=== PATIENT | male | born 1945 | race Caucasian/White ===

== ENCOUNTER 2017-07-01 16:14 | Inpatient (IN) | payer BC, MEDICARE ==
[2017-07-01] VITALS (13 sets, daily range): BP systolic 76–107; BP diastolic 38–73
[~2017-07-01] VITALS: Ht 172.7 cm; Wt 101.2 kg
[2017-07-01] MEDS ORDERED: SODIUM CHLORIDE 0.9% 1000ML 2,000 ML IV ONE (16:27)
[2017-07-01] MEDS ORDERED: ACETAMINOPHEN ELIXIR 325 MG/10.15ML UDCUP ONE (16:27)
[2017-07-01] MEDS ORDERED: ZOSYN 3.375GM+NS 50ML 50 ML IV ONE (16:27)
[2017-07-01 16:34] LABS: BASOPHILS % (AUTO) 0.1 % (0.0-5.0); HEMATOCRIT 38.5 % (42-54); LYMPHOCYTES % (AUTO) 2.4 % (21.0-51.0); MEAN CORPUSCULAR HEMOGLOBIN 30.1 pg (27.0-33.0); MEAN CORPUSCULAR HGB CONC 33.4 g/dL (32.0-36.0); MEAN CORPUSCULAR VOLUME 90.3 fL (79-99); MONOCYTES % (AUTO) 1.8 % (3.0-13.0); NEUTROPHILS % (AUTO) 95.7 % (40.0-77.0); PLATELET COUNT (AUTO) 150 K/uL (130-400); RED BLOOD CELL COUNT(AUTO) 4.27 MIL/uL (4.50-6.20); RED CELL DISTRIBUTION WIDTH 15.6 % (11.0-15.5); WHITE BLOOD COUNT (AUTO) 13.1 K/uL (4.8-10.8)
[2017-07-01 16:37] LABS: APPEARANCE,URINE CLOUDY (CLEAR); BILIRUBIN,URINE MODERATE (NEGATIVE); COLOR,URINE YELLOW (YELLOW); GLUCOSE, URINE (UA) 100 mg/dL (NEGATIVE); KETONES,URINE 15 mg/dL (NEGATIVE); LEUKOCYTE ESTERASE ,URINE LARGE (NEGATIVE); NITRATE,URINE NEGATIVE (NEGATIVE); OCCULT BLOOD,URINE MODERATE (NEGATIVE); PH,URINE 5.5 (5.0-8.0); PROTEIN,URINE 30 (NEGATIVE)
[2017-07-01 17:00] LABS: WBC,URINE 26-50 /HPF (0-1)
[2017-07-01 17:01] LABS: BACTERIA,URINE Few /HPF (None Seen); SQUAMOUS EPITHELIAL CELL,UR Few /HPF (0-2)
[2017-07-01 17:19] LABS: INR 1.34 (0.85-1.15); PARTIAL THROMBOPLASTIN TIME 30.4 SEC (26.3-35.5)
[2017-07-01 17:35] LABS: ALBUMIN 1.8 g/dL (3.5-5.0); BILIRUBIN,TOTAL 2.9 mg/dL (0.2-1.0); CREATINE KINASE MB 1.9 ng/mL (0.5-3.6); CREATININE 2.6 mg/dL (0.5-1.5); POTASSIUM 2.6 mmol/L (3.5-5.1); TOTAL PROTEIN, SERUM 5.5 g/dL (6.0-8.3); TROPONIN I 0.54 ng/mL (0.00-0.06)
[2017-07-01] MEDS ORDERED: POTASSIUM CHLORIDE 20MEQ/100ML 100 ML IV ONE (18:04)
[2017-07-01] MEDS ORDERED: LIDOCAINE HCL-MPF 1% 2ML VIAL ONE (18:04)
[2017-07-01] MEDS ORDERED: SODIUM CHLORIDE 0.9% 1000ML 1,000 ML IV ONE ×2 (18:06→18:59)
[2017-07-01] MEDS ORDERED: CLONIDINE HCL 0.1 MG TABLET PO PRN (18:30)
[2017-07-01] MEDS ORDERED: MAGNESIUM OXIDE 400 MG TABLET PO ONE (18:30)
[2017-07-01] MEDS ORDERED: ENOXAPARIN SODIUM 40 MG/0.4 ML SYRINGE SQ SCH (18:30)
[2017-07-01] MEDS ORDERED: SODIUM CHLORIDE 0.9% 10 ML VIAL IVP SCH (18:30)
[2017-07-01] MEDS ORDERED: LACTULOSE 20 GM/30 ML UDCUP PO PRN (18:30)
[2017-07-01] MEDS ORDERED: ACETAMINOPHEN 325 MG TAB PO PRN ×2 (18:30)
[2017-07-01] MEDS ORDERED: ONDANSETRON HCL MDV 20ML 2 MG/ML VIAL IVP PRN (18:45)
[2017-07-01] MEDS ORDERED: LEVOFLOXACIN 500 MG/D5W 100 ML 100 ML IV SCH (19:00)
[2017-07-01] MEDS: SODIUM CHLORIDE 0.9% 1000ML 1,000 ML IV SCH ×4 (20:09→22:57)
[2017-07-01] MEDS ORDERED: POTASSIUM CHLORIDE 20 MEQ/100 ML BAG IV ONE (20:30)
[2017-07-01] MEDS ORDERED: NOREPINEPHRINE 4MG/NS 250ML 250 ML IV SCH (21:00)
[2017-07-01] MEDS ORDERED: HYDR-4060 PO (21:35)
[2017-07-01] MEDS ORDERED: SOLI10TA PO (21:35)
[2017-07-01] MEDS ORDERED: ASPI-555 PO (21:35)
[2017-07-01] MEDS ORDERED: PRED20TA3 PO (21:35)
[2017-07-01] MEDS ORDERED: AMLO5TAB2 PO (21:35)
[2017-07-01] MEDS ORDERED: CARV25TA PO (21:35)
[2017-07-01] MEDS ORDERED: CYCL10TA7 PO (21:35)
[2017-07-01] MEDS ORDERED: SIMV40TA59 PO (21:35)
[2017-07-01] MEDS ORDERED: LISI-613 PO (21:35)
[2017-07-01] MEDS ORDERED: GLYB1TAB3 PO (21:35)
[2017-07-01] MEDS ORDERED: TERA2CAP4 PO (21:35)
[2017-07-01] MEDS ORDERED: FURO40TA5 PO (21:35)
[2017-07-01] MEDS ORDERED: KRIL1CAP15 PO (21:35)
[2017-07-01] MEDS ORDERED: POTA10TA PO (21:35)
[2017-07-01] MEDS ORDERED: PHENYLEPHRINE HCL 10 MG/ML 1ML VIAL IV ONE (21:42)
[2017-07-01] MEDS ORDERED: SODIUM CHLORIDE 0.9% 500 ML IV ONE (21:43)
[2017-07-01] MEDS: PHENYLEPHRINE HCL 10 MG in SODIUM CHLORIDE 0.9% 250 ML IV PRN (21:59)
[2017-07-01] MEDS ORDERED: ZOSYN 3.375GM+NS 50ML 50 ML IV SCH (22:00)
[2017-07-01] MEDS ORDERED: DOXYCYCLINE 100MG+NS 250ML 250 ML IV ONE (22:24)
[2017-07-01] MEDS ORDERED: GLUCAGON 1MG KIT 1 MG ML IM PRN (22:30)
[2017-07-01] MEDS ORDERED: DEXTROSE 50%-WATER 50 ML DISP.SYRIN IV PRN (22:30)
[2017-07-01] MEDS: DOXYCYCLINE 100MG+NS 250ML 250 ML IV SCH (22:31)
[2017-07-01] MEDS ORDERED: INSULIN HUMULIN R 100 UNIT/ML 3ML ONE (23:03)
[2017-07-01] MEDS: MAGNESIUM 2GM PREMIX 50ML 50 ML IV PRN (23:34)
[2017-07-02] VITALS (42 sets, daily range): BP systolic 82–128; BP diastolic 46–91
[2017-07-02] MEDS: ZOSYN 3.375GM+NS 50ML 50 ML IV SCH ×2 (00:27→08:17)
[2017-07-02 00:39] LABS: CREATINE KINASE MB 1.8 ng/mL (0.5-3.6); TROPONIN I 0.46 ng/mL (0.00-0.06)
[2017-07-02] MEDS: PHENYLEPHRINE HCL 10 MG in SODIUM CHLORIDE 0.9% 250 ML IV PRN ×6 (00:39→17:19)
[2017-07-02] MEDS ORDERED: PHENYLEPHRINE HCL 10 MG/ML 1ML VIAL IV ONE ×2 (00:55→02:06)
[2017-07-02] MEDS ORDERED: SODIUM CHLORIDE 0.9% 500 ML IV ONE ×2 (00:56→02:07)
[2017-07-02] MEDS ORDERED: SODIUM CHLORIDE 0.9% 1000ML 1,000 ML IV ONE (01:45)
[2017-07-02] MEDS ORDERED: NOREPINEPHRINE 4MG/NS 250ML 250 ML IV PRN (01:45)
[2017-07-02] MEDS ORDERED: VASOPRESSIN 125 UNITS in SODIUM CHLORIDE 0.9% 250 ML IV PRN (01:45)
[2017-07-02] MEDS: SODIUM CHLORIDE 0.9% 1000ML 1,000 ML IV SCH (03:07)
[2017-07-02 04:09] LABS: ABG BASE EXCESS 1.8 mmol/L (-2.0-3.0); ABG HCO3 25.1 mmol/L (21.0-28.0); ABG OXYGEN SATURATION 96.2 % (95.0-99.0); ABG PCO2 36 mmHg (35-48)
[2017-07-02 05:54] LABS: BASOPHILS % (AUTO) 0.2 % (0.0-5.0); EOSINOPHILS % (AUTO) 0.1 % (0.0-8.0); HEMATOCRIT 30.5 % (42-54); LYMPHOCYTES % (AUTO) 6.6 % (21.0-51.0); MEAN CORPUSCULAR HEMOGLOBIN 30.9 pg (27.0-33.0); MEAN CORPUSCULAR VOLUME 88.3 fL (79-99); MONOCYTES % (AUTO) 5.1 % (3.0-13.0); PLATELET COUNT (AUTO) 125 K/uL (130-400); RED BLOOD CELL COUNT(AUTO) 3.45 MIL/uL (4.50-6.20); RED CELL DISTRIBUTION WIDTH 15.5 % (11.0-15.5); WHITE BLOOD COUNT (AUTO) 16.1 K/uL (4.8-10.8)
[2017-07-02 06:05] LABS: B-TYPE NATRIURETIC PEPTIDE 1080 pg/mL (0-100)
[2017-07-02 06:06] LABS: HEMOGLOBIN A1C 10.3 % (4.0-6.0)
[2017-07-02 06:36] LABS: ALANINE AMINOTRANSFERASE 12 U/L (12-78); ALBUMIN 1.7 g/dL (3.5-5.0); ASPARTATE AMINOTRANSFERASE 17 U/L (10-37); BILIRUBIN,TOTAL 2.2 mg/dL (0.2-1.0); CARBON DIOXIDE 26 mmol/L (21-32); CHLORIDE 101 mmol/L (101-111); CHOLESTEROL 59 mg/dL (<200); CREATINE KINASE MB 1.9 ng/mL (0.5-3.6); CREATINE KINASE, TOTAL 98 U/L (21-232); CREATININE 1.8 mg/dL (0.5-1.5); GLOMERULAR FILTR. RATE CALC 40 mL/min (>60); GLUCOSE,RANDOM 177 mg/dL (70-105); LDL DIRECT 29 mg/dL (0-99); MYOGLOBIN 108 ng/mL (10-92); SODIUM SERUM 136 mmol/L (136-145); THYROID STIMULATING HORMONE 1.99 uIU/mL (0.36-3.74); TOTAL PROTEIN, SERUM 5.4 g/dL (6.0-8.3); TRIGLYCERIDES 136 mg/dL (30-200); TROPONIN I 0.38 ng/mL (0.00-0.06); UREA NITROGEN, BLOOD 37 mg/dL (7-18)
[2017-07-02 06:37] LABS: HDL CHOLESTEROL < 10 mg/dL (29-71)
[2017-07-02 06:38] LABS: POTASSIUM 2.4 mmol/L (3.5-5.1)
[2017-07-02] MEDS ORDERED: POTASSIUM CHLORIDE 20MEQ/100ML 100 ML IV ONE (06:40)
[2017-07-02] MEDS ORDERED: POTASSIUM CHLORIDE 10% ELIXIR 20 MEQ/15 ML UDCUP PO PRN (07:30)
[2017-07-02] MEDS ORDERED: LIDOCAINE HCL-MPF 1% 2ML VIAL IVP PRN (07:30)
[2017-07-02] MEDS ORDERED: INSULIN HUMULIN R 100 UNIT/ML 3ML SQ SCH (07:30)
[2017-07-02] MEDS ORDERED: SODIUM CHLORIDE 0.9% 500ML 500 ML IV ONE (09:18)
[2017-07-02] MEDS ORDERED: DIATR MEGLU/DIATRIZOATE SODIUM 30 ML BOTTLE ONE (10:05)
[2017-07-02] MEDS ORDERED: ALBUMIN (HUMAN) 25% 100 ML IV ONE ×3 (10:15→18:45)
[2017-07-02] MEDS ORDERED: AMILORIDE HCL 5 MG TABLET PO SCH (10:45)
[2017-07-02] MEDS ORDERED: SODIUM CHLORIDE 0.9% 1000ML 1,000 ML IV SCH (10:45)
[2017-07-02] MEDS ORDERED: POTASSIUM CHLORIDE 20 MEQ/100 ML BAG IV STA (10:50)
[2017-07-02] MEDS ORDERED: MAGNESIUM 2GM PREMIX 50ML 50 ML IV SCH (11:00)
[2017-07-02] MEDS ORDERED: MEROPENEM 1GM IVPB PREMIXED 1 GM IV SCH (11:00)
[2017-07-02] MEDS: POTASSIUM CHLORIDE 20MEQ/100ML 100 ML IV PRN ×4 (11:11→23:54)
[2017-07-02] MEDS: MAGNESIUM 2GM PREMIX 50ML 50 ML IV PRN (11:11)
[2017-07-02] MEDS: DOXYCYCLINE 100MG+NS 250ML 250 ML IV SCH ×2 (11:20→20:53)
[2017-07-02] MEDS: INSULIN HUMULIN R 100 UNIT/ML 3ML SQ SCH ×3 (11:30→20:53)
[2017-07-02] MEDS: CYCLOBENZAPRINE HCL 10 MG TABLET PO SCH ×2 (11:57→20:24)
[2017-07-02] MEDS: POTASSIUM CHLORIDE 20MEQ/100ML 100 ML IV SCH ×2 (11:57→12:24)
[2017-07-02] MEDS: MEROPENEM 1 GM VIAL IVP SCH ×2 (14:28→20:23)
[2017-07-02] MEDS: MIDODRINE HCL 5 MG TABLET PO SCH ×2 (16:18→20:24)
[2017-07-02] MEDS: POTASSIUM CHLORIDE 10 MEQ PO SCH (17:00)
[2017-07-02 17:12] LABS: CREATININE 1.5 mg/dL (0.5-1.5)
[2017-07-02 17:43] LABS: POTASSIUM 2.8 mmol/L (3.5-5.1)
[2017-07-02] MEDS: TAMSULOSIN HCL 0.4 MG CAP.ER.24H PO SCH (20:24)
[2017-07-02] MEDS ORDERED: ZOSYN 3.375GM+NS 50ML 50 ML IV SCH (21:00)
[2017-07-02] MEDS ORDERED: CARVEDILOL 25 MG TABLET PO SCH (21:00)
[2017-07-02 23:32] LABS: CREATININE 1.4 mg/dL (0.5-1.5)
[2017-07-03] VITALS (29 sets, daily range): BP systolic 106–142; BP diastolic 57–88
[2017-07-03] MEDS: POTASSIUM CHLORIDE 20MEQ/100ML 100 ML IV PRN ×2 (00:52→06:04)
[2017-07-03] MEDS: MEROPENEM 1 GM VIAL IVP SCH ×3 (04:02→20:15)
[2017-07-03 04:53] LABS: BASOPHILS % (AUTO) 0.2 % (0.0-5.0); EOSINOPHILS % (AUTO) 0.4 % (0.0-8.0); HEMATOCRIT 28.9 % (42-54); LYMPHOCYTES % (AUTO) 7.8 % (21.0-51.0); MEAN CORPUSCULAR HEMOGLOBIN 30.5 pg (27.0-33.0); MEAN CORPUSCULAR HGB CONC 34.6 g/dL (32.0-36.0); MEAN CORPUSCULAR VOLUME 88.3 fL (79-99); NEUTROPHILS % (AUTO) 86.6 % (40.0-77.0); PLATELET COUNT (AUTO) 89 K/uL (130-400); RED BLOOD CELL COUNT(AUTO) 3.28 MIL/uL (4.50-6.20); RED CELL DISTRIBUTION WIDTH 15.9 % (11.0-15.5); WHITE BLOOD COUNT (AUTO) 6.4 K/uL (4.8-10.8)
[2017-07-03 05:04] LABS: B-TYPE NATRIURETIC PEPTIDE 280 pg/mL (0-100)
[2017-07-03 05:25] LABS: ALBUMIN 1.9 g/dL (3.5-5.0); BILIRUBIN,TOTAL 1.8 mg/dL (0.2-1.0); CREATININE 1.3 mg/dL (0.5-1.5); MAGNESIUM 2.1 mg/dL (1.80-2.40); POTASSIUM 3.4 mmol/L (3.5-5.1); TOTAL PROTEIN, SERUM 5.3 g/dL (6.0-8.3)
[2017-07-03] MEDS: INSULIN HUMULIN R 100 UNIT/ML 3ML SQ SCH ×4 (06:03→21:00)
[2017-07-03] MEDS: POTASSIUM CHLORIDE 10 MEQ PO SCH ×2 (08:00→16:24)
[2017-07-03] MEDS: CYCLOBENZAPRINE HCL 10 MG TABLET PO SCH ×3 (09:00→20:15)
[2017-07-03] MEDS: SOLIFENACIN SUCCINATE 10 MG PO SCH (09:00)
[2017-07-03] MEDS ORDERED: LISINOPRIL 20 MG TABLET PO SCH (09:00)
[2017-07-03] MEDS ORDERED: AMLODIPINE BESYLATE 5 MG TAB PO SCH (09:00)
[2017-07-03] MEDS ORDERED: TERAZOSIN HCL 2 MG CAPSULE PO SCH (09:00)
[2017-07-03] MEDS: MIDODRINE HCL 5 MG TABLET PO SCH ×3 (09:54→20:15)
[2017-07-03] MEDS: PANTOPRAZOLE SODIUM 40 MG TABLET.DR PO SCH (09:54)
[2017-07-03] MEDS: FISH OIL 1000 MG/CAP PO SCH (09:54)
[2017-07-03] MEDS: ASPIRIN 81 MG EC TAB PO SCH (09:54)
[2017-07-03] MEDS: DOXYCYCLINE 100MG+NS 250ML 250 ML IV SCH ×2 (09:54→20:54)
[2017-07-03] MEDS: ENOXAPARIN SODIUM 40 MG/0.4 ML SYRINGE SQ SCH (09:56)
[2017-07-03] MEDS ORDERED: VANCOMYCIN PROTOCOL PER PHARMACY IV SCH (14:15)
[2017-07-03] MEDS ORDERED: VANCOMYCIN 1.5 GM in SODIUM CHLORIDE 0.9% 250 ML IV ONE (15:00)
[2017-07-03] MEDS ORDERED: COMPOUND IV REFRIGERATED 1 EACH IVSOLN MISC PRN (15:15)
[2017-07-03] MEDS: TAMSULOSIN HCL 0.4 MG CAP.ER.24H PO SCH (20:15)
[2017-07-03] MEDS ORDERED: KETAMINE HCL 100 MG/ML 5ML VIAL IJ ONE (22:03)
[2017-07-03] MEDS ORDERED: LIDOCAINE HCL 1% 20 ML VIAL ONE (22:03)
[2017-07-03] MEDS ORDERED: MIDAZOLAM HCL 1 MG/ML 2ML VIAL ONE (22:04)
[2017-07-04] VITALS (14 sets, daily range): BP systolic 108–148; BP diastolic 51–89
[2017-07-04] MEDS ORDERED: VANCOMYCIN 750MG + NS 250 ML IV SCH ×2 (03:00)
[2017-07-04] MEDS: MEROPENEM 1 GM VIAL IVP SCH (03:26)
[2017-07-04 03:59] LABS: BASOPHILS % (AUTO) 0.2 % (0.0-5.0); EOSINOPHILS % (AUTO) 0.3 % (0.0-8.0); HEMATOCRIT 28.7 % (42-54); LYMPHOCYTES % (AUTO) 7.8 % (21.0-51.0); MEAN CORPUSCULAR HEMOGLOBIN 31.1 pg (27.0-33.0); MEAN CORPUSCULAR HGB CONC 34.9 g/dL (32.0-36.0); MEAN CORPUSCULAR VOLUME 89.4 fL (79-99); MONOCYTES % (AUTO) 3.3 % (3.0-13.0); NEUTROPHILS % (AUTO) 88.4 % (40.0-77.0); NUCLEATED RED BLOOD CELLS 0.1 % (0.0-0.19); PLATELET COUNT (AUTO) 91 K/uL (130-400); RED BLOOD CELL COUNT(AUTO) 3.21 MIL/uL (4.50-6.20); RED CELL DISTRIBUTION WIDTH 15.9 % (11.0-15.5); WHITE BLOOD COUNT (AUTO) 7.4 K/uL (4.8-10.8)
[2017-07-04 04:02] LABS: CREATININE 1.2 mg/dL (0.5-1.5); MAGNESIUM 1.7 mg/dL (1.80-2.40); PHOSPHORUS 2.3 mg/dL (2.5-4.9); POTASSIUM 3.2 mmol/L (3.5-5.1)
[2017-07-04 05:23] LABS: B-TYPE NATRIURETIC PEPTIDE 414 pg/mL (0-100)
[2017-07-04] MEDS: INSULIN HUMULIN R 100 UNIT/ML 3ML SQ SCH ×4 (06:04→20:56)
[2017-07-04] MEDS: POTASSIUM CHLORIDE 10 MEQ PO SCH ×2 (08:00→17:00)
[2017-07-04] MEDS: DOXYCYCLINE 100MG+NS 250ML 250 ML IV SCH (08:07)
[2017-07-04] MEDS: ASPIRIN 81 MG EC TAB PO SCH (08:07)
[2017-07-04] MEDS: CYCLOBENZAPRINE HCL 10 MG TABLET PO SCH ×3 (08:07→20:50)
[2017-07-04] MEDS: PANTOPRAZOLE SODIUM 40 MG TABLET.DR PO SCH (08:07)
[2017-07-04] MEDS: FISH OIL 1000 MG/CAP PO SCH (08:08)
[2017-07-04] MEDS: ENOXAPARIN SODIUM 40 MG/0.4 ML SYRINGE SQ SCH (08:11)
[2017-07-04] MEDS: ENOXAPARIN SODIUM 30 MG/0.3 ML SQ SCH (08:58)
[2017-07-04 09:00] LABS: ABG BASE EXCESS -0.8 mmol/L (-2.0-3.0); ABG HCO3 22.1 mmol/L (21.0-28.0); ABG OXYGEN SATURATION 98.2 % (95.0-99.0); ABG PCO2 32 mmHg (35-48)
[2017-07-04] MEDS: MIDODRINE HCL 5 MG TABLET PO SCH (09:00)
[2017-07-04] MEDS: SOLIFENACIN SUCCINATE 10 MG PO SCH (09:00)
[2017-07-04] MEDS: POTASSIUM CHLORIDE 20 MEQ ERTAB PO PRN ×3 (09:03→20:50)
[2017-07-04] MEDS ORDERED: CEFTRIAXONE 2GM+NS 100ML 100 ML IV SCH (11:30)
[2017-07-04] MEDS: CEFTRIAXONE SODIUM 1 GM IVP SCH (12:01)
[2017-07-04] MEDS: POTASSIUM CHLORIDE 20MEQ/100ML 100 ML IV PRN (13:37)
[2017-07-04] MEDS ORDERED: MIDODRINE HCL 5 MG TABLET PO SCH (14:00)
[2017-07-04] MEDS ORDERED: LOPERAMIDE HCL 1 MG/5 ML UNIT DOSE CUP PO PRN (14:00)
[2017-07-04] MEDS: TAMSULOSIN HCL 0.4 MG CAP.ER.24H PO SCH (20:49)
[2017-07-05 03:00] VITALS: BP 124/80
[2017-07-05 04:44] LABS: MEAN CORPUSCULAR HEMOGLOBIN 30.3 pg (27.0-33.0); MEAN CORPUSCULAR HGB CONC 34.1 g/dL (32.0-36.0); MEAN CORPUSCULAR VOLUME 88.7 fL (79-99); PLATELET COUNT (AUTO) 94 K/uL (130-400); RED BLOOD CELL COUNT(AUTO) 3.15 MIL/uL (4.50-6.20); RED CELL DISTRIBUTION WIDTH 16.1 % (11.0-15.5); WHITE BLOOD COUNT (AUTO) 6.2 K/uL (4.8-10.8)
[2017-07-05 04:51] LABS: B-TYPE NATRIURETIC PEPTIDE 282 pg/mL (0-100)
[2017-07-05 04:52] LABS: CREATININE 1.1 mg/dL (0.5-1.5); MAGNESIUM 1.7 mg/dL (1.80-2.40); POTASSIUM 3.3 mmol/L (3.5-5.1)
[2017-07-05] MEDS: PANTOPRAZOLE SODIUM 40 MG TABLET.DR PO SCH (05:48)
[2017-07-05] MEDS: MAGNESIUM 2GM PREMIX 50ML 50 ML IV PRN (05:48)
[2017-07-05] MEDS: POTASSIUM CHLORIDE 20 MEQ ERTAB PO PRN ×3 (05:49→13:51)
[2017-07-05] MEDS: INSULIN HUMULIN R 100 UNIT/ML 3ML SQ SCH ×4 (06:41→20:37)
[2017-07-05 07:40] VITALS: BP 129/76
[2017-07-05] MEDS ORDERED: GLYBURIDE 5 MG TABLET PO SCH (08:00)
[2017-07-05] MEDS: POTASSIUM CHLORIDE 10 MEQ PO SCH ×2 (08:00→17:00)
[2017-07-05] MEDS: SOLIFENACIN SUCCINATE 10 MG PO SCH (09:00)
[2017-07-05] MEDS: FISH OIL 1000 MG/CAP PO SCH (10:00)
[2017-07-05] MEDS: ASPIRIN 81 MG EC TAB PO SCH (10:00)
[2017-07-05] MEDS: CYCLOBENZAPRINE HCL 10 MG TABLET PO SCH ×3 (10:01→20:36)
[2017-07-05] MEDS: CARVEDILOL 6.25 MG TABLET PO SCH ×2 (10:03→20:37)
[2017-07-05] MEDS: ENOXAPARIN SODIUM 30 MG/0.3 ML SQ SCH (10:07)
[2017-07-05 11:00] VITALS: BP 124/73
[2017-07-05] MEDS: CEFTRIAXONE SODIUM 1 GM IVP SCH (12:24)
[2017-07-05 15:00] VITALS: BP 110/69
[2017-07-05] MEDS: HYDROCODONE/ACETAMINOPHEN 5/325 MG TAB PO PRN (18:20)
[2017-07-05 20:01] VITALS: BP 119/69
[2017-07-05] MEDS: TAMSULOSIN HCL 0.4 MG CAP.ER.24H PO SCH (20:36)
[2017-07-05 23:32] VITALS: BP 105/62
[2017-07-06 03:55] VITALS: BP 112/77
[2017-07-06 04:42] LABS: HEMATOCRIT 28.7 % (42-54); MEAN CORPUSCULAR HEMOGLOBIN 31.4 pg (27.0-33.0); MEAN CORPUSCULAR VOLUME 89.8 fL (79-99); PLATELET COUNT (AUTO) 134 K/uL (130-400); RED BLOOD CELL COUNT(AUTO) 3.19 MIL/uL (4.50-6.20); WHITE BLOOD COUNT (AUTO) 8.1 K/uL (4.8-10.8)
[2017-07-06 05:12] LABS: CREATININE 1.2 mg/dL (0.5-1.5); POTASSIUM 4.1 mmol/L (3.5-5.1)
[2017-07-06] MEDS: MAGNESIUM 2GM PREMIX 50ML 50 ML IV PRN (05:41)
[2017-07-06] MEDS: PANTOPRAZOLE SODIUM 40 MG TABLET.DR PO SCH (05:42)
[2017-07-06] MEDS: INSULIN HUMULIN R 100 UNIT/ML 3ML SQ SCH ×4 (07:26→20:52)
[2017-07-06 08:00] VITALS: BP 107/62
[2017-07-06] MEDS: POTASSIUM CHLORIDE 10 MEQ PO SCH ×2 (08:00→17:00)
[2017-07-06] MEDS: SOLIFENACIN SUCCINATE 10 MG PO SCH (09:00)
[2017-07-06] MEDS: CARVEDILOL 6.25 MG TABLET PO SCH ×2 (09:00→20:48)
[2017-07-06] MEDS: CYCLOBENZAPRINE HCL 10 MG TABLET PO SCH ×3 (09:49→20:48)
[2017-07-06] MEDS: ASPIRIN 81 MG EC TAB PO SCH (09:49)
[2017-07-06] MEDS: FISH OIL 1000 MG/CAP PO SCH (09:50)
[2017-07-06] MEDS: ENOXAPARIN SODIUM 30 MG/0.3 ML SQ SCH (09:53)
[2017-07-06 11:00] VITALS: BP 110/68
[2017-07-06] MEDS: CEFTRIAXONE SODIUM 1 GM IVP SCH (12:20)
[2017-07-06 13:41] LABS: INR 1.2 (0.85-1.15); PARTIAL THROMBOPLASTIN TIME 31.5 SEC (26.3-35.5); PROTHROMBIN TIME 12.6 SEC (9.6-11.6)
[2017-07-06 16:00] VITALS: BP 134/72
[2017-07-06] MEDS: GLYBURIDE 5 MG TABLET PO SCH (16:30)
[2017-07-06 19:50] VITALS: BP 102/54
[2017-07-06] MEDS: TAMSULOSIN HCL 0.4 MG CAP.ER.24H PO SCH (20:49)
[2017-07-06] MEDS: HYDROCODONE/ACETAMINOPHEN 5/325 MG TAB PO PRN (20:58)
[2017-07-06 23:45] VITALS: BP 115/63
[2017-07-07 03:55] VITALS: BP 123/70
[2017-07-07 04:59] LABS: CREATININE 1.1 mg/dL (0.5-1.5); MAGNESIUM 1.8 mg/dL (1.80-2.40); POTASSIUM 4.1 mmol/L (3.5-5.1)
[2017-07-07] MEDS: INSULIN HUMULIN R 100 UNIT/ML 3ML SQ SCH (06:15)
[2017-07-07] MEDS: GLYBURIDE 5 MG TABLET PO SCH (06:17)
[2017-07-07] MEDS: PANTOPRAZOLE SODIUM 40 MG TABLET.DR PO SCH (06:17)
[2017-07-07] MEDS ORDERED: TAMS-1 PO (07:52)
[2017-07-07 08:00] VITALS: BP 122/68
[2017-07-07] MEDS ORDERED: CARVEDILOL 12.5 MG TABLET PO SCH (09:00)
[2017-07-07] MEDS: SOLIFENACIN SUCCINATE 10 MG PO SCH (09:00)
[2017-07-07] MEDS: ASPIRIN 81 MG EC TAB PO SCH (09:59)
[2017-07-07] MEDS: FISH OIL 1000 MG/CAP PO SCH (09:59)
[2017-07-07] MEDS: CYCLOBENZAPRINE HCL 10 MG TABLET PO SCH ×2 (09:59→14:32)
[2017-07-07] MEDS: ENOXAPARIN SODIUM 30 MG/0.3 ML SQ SCH (10:01)
[2017-07-07 12:00] VITALS: BP 134/83
[2017-07-07] MEDS: CEFTRIAXONE SODIUM 1 GM IVP SCH (14:32)
== END 2017-07-07 16:00 | disposition home or self-care (01) | DRG 853 ==
LOC: EDH 16:14 → EEVIPCON 18:09 → EDHIP 18:09 → 2CH 18:28 → 3AH 07-04 14:48
PROVIDERS: ADMIT Family Medicine; ATTEND Family Medicine
PROC: 02HV33Z Insertion of Infusion Device into Superior Vena Cava, Percutaneous Approach (ICD-10-PCS; principal; 2017-07-02)
PROC: 0J9C0ZZ Drainage of Pelvic Region Subcutaneous Tissue and Fascia, Open Approach (ICD-10-PCS; 2017-07-03)
DX: A41.50 Gram-negative sepsis, unspecified (principal); G92 Toxic encephalopathy; J96.01 Acute respiratory failure with hypoxia; R65.21 Severe sepsis with septic shock; N15.1 Renal and perinephric abscess; I50.33 Acute on chronic diastolic (congestive) heart failure; D69.6 Thrombocytopenia, unspecified; E11.22 Type 2 diabetes mellitus with diabetic chronic kidney disease; I48.91 Unspecified atrial fibrillation; E86.0 Dehydration; E87.1 Hypo-osmolality and hyponatremia; N17.9 Acute kidney failure, unspecified; E87.2 Acidosis; I13.0 Hypertensive heart and chronic kidney disease with heart failure and stage 1 through stage 4 chronic kidney disease, or unspecified chronic kidney disease; N30.00 Acute cystitis without hematuria; I42.0 Dilated cardiomyopathy; L02.215 Cutaneous abscess of perineum; B95.8 Unspecified staphylococcus as the cause of diseases classified elsewhere; B96.1 Klebsiella pneumoniae [K. pneumoniae] as the cause of diseases classified elsewhere; D64.9 Anemia, unspecified; E11.65 Type 2 diabetes mellitus with hyperglycemia; E66.9 Obesity, unspecified; E78.5 Hyperlipidemia, unspecified; E87.6 Hypokalemia; E87.8 Other disorders of electrolyte and fluid balance, not elsewhere classified; I25.10 Atherosclerotic heart disease of native coronary artery without angina pectoris; I25.5 Ischemic cardiomyopathy; N18.9 Chronic kidney disease, unspecified; N40.0 Benign prostatic hyperplasia without lower urinary tract symptoms; N41.9 Inflammatory disease of prostate, unspecified; N49.2 Inflammatory disorders of scrotum; W19.XXXA Unspecified fall, initial encounter; I25.2 Old myocardial infarction; Z68.33 Body mass index [BMI] 33.0-33.9, adult; Z74.01 Bed confinement status; Z95.0 Presence of cardiac pacemaker; Z87.891 Personal history of nicotine dependence; Z87.440 Personal history of urinary (tract) infections; Y93.89 Activity, other specified; Y92.89 Other specified places as the place of occurrence of the external cause; Y99.8 Other external cause status; Z82.49 Family history of ischemic heart disease and other diseases of the circulatory system
CPT/HCPCS: 36415; 36600; 70450; 71045; 71250; 74176; 80048; 80053; 80061; 80202; 81001; 82009; 82550; 82553; 82803; 82948; 83036; 83605; 83735; 83874; 83880; 84100; 84443; 84484; 85025; 85027; 85610; 85730; 87040; 87070; 87076; 87077; 87088; 87186; 87205; 87324; 93005; 93306; 97039; A4218; A4357; C1751; J0696; J1650; J1815; J1956; J2185; J2250; J2370; J2543; J3370; J3475; J3480; J3490; J7030; J7040; P9046; Q9963

== ENCOUNTER → 2018-04-12 | Outpatient (CLI) | payer MEDICARE ==
[~2018-04-12] MED LIST: ASPI-555 PO; CARV25TA PO; CYCL10TA7 PO; FURO40TA5 PO; GLYB1TAB3 PO; HYDR-4060 PO; KRIL1CAP15 PO; POTA10TA PO; SIMV40TA59 PO; SOLI10TA PO; TAMS-1 PO; TERA2CAP4 PO
== END | disposition home or self-care (01) ==
LOC: RAH 10:13
PROVIDERS: ATTEND Internal Medicine
DX: M19.021 Primary osteoarthritis, right elbow (principal); M25.421 Effusion, right elbow; M19.041 Primary osteoarthritis, right hand
CPT/HCPCS: 73080; 73090; 73130

== ENCOUNTER 2018-08-29 07:20 | Day surgery (SDC) | payer MEDICARE ==
[2018-08-27 11:05] VITALS: BP 128/68
[2018-08-27 11:23] LABS: BASOPHILS % (AUTO) 0.8 % (0.0-5.0); EOSINOPHILS % (AUTO) 0.9 % (0.0-8.0); HEMATOCRIT 50.1 % (42-54); LYMPHOCYTES % (AUTO) 26.1 % (21.0-51.0); MEAN CORPUSCULAR HEMOGLOBIN 31.5 pg (27.0-33.0); MEAN CORPUSCULAR VOLUME 92.6 fL (79-99); MONOCYTES % (AUTO) 9.2 % (3.0-13.0); PLATELET COUNT (AUTO) 156 K/uL (130-400); RED BLOOD CELL COUNT(AUTO) 5.42 MIL/uL (4.50-6.20); RED CELL DISTRIBUTION WIDTH 13.9 % (11.0-15.5); WHITE BLOOD COUNT (AUTO) 4.3 K/uL (4.8-10.8)
[2018-08-27 11:36] LABS: CREATININE 1.4 mg/dL (0.5-1.5); POTASSIUM 4.3 mmol/L (3.5-5.1)
[2018-08-27 11:39] LABS: INR 1.25 (0.85-1.15); PARTIAL THROMBOPLASTIN TIME 34.1 SEC (26.3-35.5); PROTHROMBIN TIME 13.1 SEC (9.6-11.6)
--- NOTE | 2018-08-27 13:00 | NUR ---
[facility]: CALLED PATIENT AND LEFT MESSAGE INFORMING HIM TO STOP/HOLD [facility] UNTIL AFTER HIS SCHEDULED PROCEDURE FOR ICD REPLACEMENT.
--- NOTE | 2018-08-27 14:39 | NUR ---
[facility] REP: CALLED [employer] AND INFORMED THEM OF DATE FOR ICD REPLACEMENT. LOCAL REP WAS PAGED AND NOTIFIED OF PROCEDURE DATE.
--- NOTE | 2018-08-28 11:24 | NUR ---
[facility] INFORMED GRACIELA RUDOLPH OF ABNORMAL INR/PT. SHE WILL INFORM DR. LOYA.
--- NOTE | 2018-08-28 11:38 | NUR ---
FERMIN RUDOLPH LVN ON PHONE. PER DR. LOYA, PROCEED WITH PLANNED PROCEDURE.
[~2018-08-29] VITALS: Ht 180.3 cm; Wt 104.0 kg
[2018-08-29] VITALS (8 sets, daily range): BP systolic 85–135; BP diastolic 40–80
[~2018-08-29 07:20] MED LIST changes: +BIOF1TAB8 PO; +CEFAZOLIN SODIUM 1 GM VIAL IVP SCH; -CYCL10TA7 PO; -HYDR-4060 PO; +LISI10TA7 PO; +MIRA50TA PO; +SODIUM CHLORIDE 0.9% 1000ML 1,000 ML IV SCH; -SOLI10TA PO; -TAMS-1 PO; -TERA2CAP4 PO; +WARF7.5T49 PO
[2018-08-29] MEDS ORDERED: LIDOCAINE HCL 1% MDV 50ML VIAL ONE (08:49)
[2018-08-29] MEDS ORDERED: CEFAZOLIN SODIUM 1 GM VIAL ONE (08:49)
[2018-08-29] MEDS ORDERED: BUPIVACAINE/PF 0.25% 10ML VIAL IJ ONE (08:50)
[2018-08-29] MEDS ORDERED: MEPERIDINE-PF 25 MG/ML SYG ONE ×4 (09:04→10:54)
[2018-08-29] MEDS ORDERED: MIDAZOLAM HCL 1 MG/ML 2ML VIAL ONE ×4 (09:04→10:54)
[2018-08-29] MEDS ORDERED: TRAM50TA4 PO (11:26)
[2018-08-29] MEDS ORDERED: ACETAMINOPHEN-CODEINE 300/30MG TAB PO PRN (11:30)
--- NOTE | 2018-08-29 11:38 | NUR ---
RETURN FROM PROCEDURE: PATIENT BROUGHT BACK FROM PROCEDURE BY DEANN HOUSER. PATIENT DROWSY, ORIENTED X3. DRESSING TO LEFT UPPER CHEST DRY AND INTACT, NO DRAINAGE NOTED. SLIGHT REDNESS NOTED AROUND DRESSING AREA. NO C/O PAIN AT THIS TIME. SPOUSE AT BEDSIDE AND SPOKE WITH DR LOYA.
--- NOTE | 2018-08-29 14:30 | NUR ---
DISCHARGE DISCHARGE INSTRUCTIONS EXPLAINED TO PATIENT AND SPOUSE (MARIA ANTONIA DU). BOTH INDIVIDUALS VERBALIZED UNDERSTANDING. ANSWERED ALL QUESTIONS AND CONCERNS. DRESSING APPEARS DRY AND INTACT, NO DRAINAGE OR SWELLING NOTED. PATIENT WHEELED OUT TO PRIVATE VEHICLE BY [employer] AND ACCOMPANIED BY SPOUSE.
== END 2018-08-29 14:35 | disposition home or self-care (01) ==
LOC: DAH 07:20
PROVIDERS: ATTEND Internal Medicine Cardiovascular Disease
DX: Z45.02 Encounter for adjustment and management of automatic implantable cardiac defibrillator (principal); I25.5 Ischemic cardiomyopathy; I10 Essential (primary) hypertension; E11.9 Type 2 diabetes mellitus without complications; I48.91 Unspecified atrial fibrillation; E66.9 Obesity, unspecified; M10.9 Gout, unspecified; Z68.32 Body mass index [BMI] 32.0-32.9, adult; Z79.899 Other long term (current) drug therapy; Z86.12 Personal history of poliomyelitis; Z95.0 Presence of cardiac pacemaker; Z90.49 Acquired absence of other specified parts of digestive tract
CPT/HCPCS: 33262; 36415; 80048; 82948 ×2; 85025; 85610; 85730; A4606; C1722; J0690; J2175 ×4; J2250 ×4; J3490 ×2; J7030; 99156; 99157